=== PATIENT | female | born 2005 | race Caucasian/White ===

== ENCOUNTER 2024-03-30 16:56 | Emergency (ER) | payer OTHER, SELFPAY ==
--- NOTE | ~2024-03-30 | XR_ITS ---
EXAMINATION: XR RIBS, RIGHT CLINICAL INFORMATION: Pain/injury COMPARISON: None available. TECHNIQUE: 3 views of the right ribs were obtained. FINDINGS: Lungs are clear. No consolidation, pneumothorax, or pleural effusion. The cardiomediastinal silhouette and pulmonary vasculature are normal. Osseous structures are unremarkable. Ribs are intact. No fractures are identified. XR/XR ribs RT min 3V w CXR1V IMPRESSION: Unremarkable examination. Electronically signed by: Carine Rehman MD 03/30/2024 06:44 PM SHERYL BANG
[2024-03-30 17:19] VITALS: BP 125/73; PULSE 89; RESP 20; TEMP 37.2; O2SAT 96; BMI 21.8
--- NOTE | 2024-03-30 17:20 | ED.GENADULT ---
HPI - General Adult General Chief complaint: Upper Respiratory Symptoms Stated complaint: side flank pain Time Seen by Provider: 03/30/24 22:54 Source: patient Mode of arrival: ambulatory Limitations: no limitations History of Present Illness ED Provider: Dr. Sherrie Bennett HPI narrative: Patient comes to the emergency room complaining of 2 weeks of cough, mildly productive, occasional bloody syringe sputum. Patient has been taking [id number] cough medication called medication without any relief. Patient states that sometimes when she takes big breaths she has pain in the right ribs laterally. Also, patient states that she has a constant pressure in the mandible, over the cheeks and middle of the nose between the eyes. Related Data Previous Rx's ?Medication ?Instructions ?Recorded azithromycin 250 mg tablet 250 mg PO DAILY 4 days #4 tabs 03/30/24 Allergies Allergy/AdvReac Type Severity Reaction Status Date / Time No Known Allergies Allergy Verified 03/30/24 17:22 Review of Systems Review of Systems: Constitutional : No Weight loss, No Fever, No Chills, No Night Sweats, No Fatigue, No Malaise ENT/Mouth : No Hearing loss, No Ear Pain, No Nasal Congestion, complaining of sinus pain with pressure., No Hoarseness, No sore throat, No Rhinorrhea, No Swallowing Difficulty Eyes: No Eye Pain, No Swelling, No Redness, No Foreign Body, No Discharge, No Vision Changes Cardiovascular : No palpitations, no chest pain Respiratory : Cough, pain in the ribs on the right side lateral aspect. Pain in the ribs with deep inspiration Gastrointestinal : No Nausea, No Vomiting, No Diarrhea, No Constipation, No abdominal Pain, No Hematochezia, No Melena Genitourinary : no irregular bleeding, No Dysuria, No Urinary Frequency, No Hematuria, No Urinary Incontinence, No Urgency, No Flank Pain, No Urinary Flow Changes, No Hesitancy Musculoskeletal : No joint pain, No Myalgias, No Joint Swelling Skin : No Skin Lesions, No rash Neuro : No Weakness, No Numbness, No Paresthesias, No Loss of Consciousness, No Dizziness, No Headache Psych : No Anxiety/Panic, No Depression, No SI/HI/AH/VH, No Social Issues, Heme/Lymph: No Bruising, No Bleeding,No Lymphadenopathy Endocrine : No Polyuria, No Polydipsia, No Temperature Intolerance [facility] Social History Social History Advance Directives: No Advance Directives Information Provided: No Do you have a plan to hurt others: No Plan Physical Exam ED Vital Signs: Vital Signs - 24 hr 03/30/24 17:19 Temperature 98.9 F Pulse Rate 89 Respiratory Rate 20 Blood Pressure 125/73 Pulse Oximetry 96 Oxygen Delivery Method Room Air BMI result Body Mass Index 21.8 Const Other: Appearance: Alert. Oriented X3. No acute distress. Eyes: Pupils equal, round and reactive to light. ENT: Pharynx normal. Neck: Normal inspection. Neck supple. No lymph nodes noted. No crepitus CVS: Normal heart rate and rhythm. Pulses normal. Normal S1 and S2 Respiratory: No respiratory distress. Breath sounds normal. No Wheezing. No rales Abdomen: Soft and nontender. No rigidity. No distention. Skin: Skin warm and dry. Normal skin color. Normal skin turgor. Extremities: No lower extremity edema. No Lacerations. No Rash Neuro: Oriented X 3. No motor deficit. No sensory deficit. Moving all extremities. No slurred speech. CN 2 through 12 grossly intact Psych: calm, cooperative, normal affect Course Course Course Narrative: RME performed by Mari Garcia PA-C. Patient is a 18 year old assigned female at presenting to the emergency department with a cough and right sided rib pain with cough. Detailed physical exam and review of systems are deferred to the civil geotechnical engineer. Imaging and swabs ordered. Patient placed back in the waiting room pending room availability and results. Medical Decision Making Medical Decision Making [facility] Narrative: My interpretation of labs: Serology negative for influenza RSV and COVID. No sore throat at this time. Normal oropharynx -patient states that she has a lot of pain and pressure in the sinuses. Patient likely having sinusitis. Symptoms have been ongoing for couple of weeks, likely becoming bacterial sinusitis. Lab Data [facility] Lab Attestation statement: I reviewed the patient's lab results. Labs: Lab Results 03/30/24 Range/Units 17:33 Influenza Type A (PCR) NEGATIVE (Negative) Influenza Type B (PCR) NEGATIVE (Negative) RSV RNA Qual (PCR) NEGATIVE (Negative) SARS-CoV-2 RNA (RT-PCR) NEGATIVE (Negative) Discharge Plan Discharge Clinical Impression: Sinusitis, Bronchitis Patient Disposition: Home, Self-Care Instructions: Sinusitis (ED), Acute Bronchitis (ED) Additional Instructions: Please follow-up with your primary care physician tomorrow. If you have any worsening or new symptoms, please return to the emergency room or call 911 Prescriptions: New azithromycin 250 mg tablet 250 mg PO DAILY 4 Days Qty: 4 0RF Rx Instructions: start on day 2 of therapy Print Language: [place]
[2024-03-30 18:21] LABS: Influenza A PCR NEGATIVE (Negative); Influenza B PCR NEGATIVE (Negative); Resp Syncy Virus RNA Qual PCR NEGATIVE (Negative); SARS COV2 PCR INHOUSE NEGATIVE (Negative)
[2024-03-31] MEDS: Azithromycin 500 MG TABLET PO (00:11)
[2024-03-31 00:13] VITALS: BP 106/66; PULSE 66; RESP 16; TEMP 36.9; O2SAT 99
== END 2024-03-31 00:16 | disposition home or self-care (01) ==
PROVIDERS: Physician Assistant Medical; Emergency Provider Emergency Medicine; PCP Pediatrics Adolescent Medicine
DX: R10.2 Pelvic and perineal pain (principal); R05.9 Cough, unspecified; R07.81 Pleurodynia; Z03.818 Encounter for observation for suspected exposure to other biological agents ruled out
CPT/HCPCS: 0241U; 71101; 99282; 99283